=== PATIENT | female | born 1965 | race Two or more races ===

== ENCOUNTER 2018-10-24 23:38 | Emergency (ER) | payer OTHER ==
[2018-10-24 23:43] VITALS: BP 138/91; PULSE 77; TEMP 98.2; BMI 22.6
--- NOTE | 2018-10-25 00:37 | PDOC ---
*Physical Exam - Vital Signs Last Vital Signs Temp Pulse Resp BP Pulse Ox 98.2 F 77 16 138/91 100 10/24/18 23:42 10/24/18 23:42 10/24/18 23:42 10/24/18 23:42 10/24/18 23:42 Medical Decision Making - Medical Decision Making 10/25/18 00:36 Pt seen by the Advanced Practice Provider under my direct supervision Ancillary studies reviewed I agree with plan as outlined by the Advanced Practice Provider REMA Pierre
--- NOTE | 2018-10-25 00:51 | PDOC ---
History of Present Illness - General Chief Complaint: Foreign Body (FB) Stated Complaint: EAR PAIN Time Seen by Provider: 10/25/18 00:06 History Source: Patient Exam Limitations: Clinical Condition - History of Present Illness Initial Comments: 10/25/18 00:56 Patient with no significant past medical history present with complaint of piece of garlic stuck in right ear. Patient reported she has been having right ear ache for the past day and try home remedy reuses garlic for ear pain but the garlic stuck in the right ear. Patient denies dizziness, or any other symptoms Timing/Duration: 1-3 hours Past History - Past Medical History Allergies/Adverse Reactions: Allergies Allergy/AdvReac Type Severity Reaction Status Date / Time No Known Drug Allergies Allergy Verified 10/24/18 23:43 Home Medications: Ambulatory Orders Ascorbate Calcium [Vitamin C] 500 mg PO DAILY 02/25/14 Biotin 800 mcg PO DAILY 02/25/14 Calcium Carbonate/Vitamin D3 [Calcium 600-Vit D3 200 Tablet] 1 tab PO DAILY Oxycodone HCl/Acetaminophen [Percocet 5-325 mg Tablet] 1 tab PO Q6H #20 tablet 02/27/14 Neomycin/Polymyxin B/Hydrocort [Yqlszrer-Mgkmpyaea-Ku Ear Susp] 4 drop OT Q6H 5 Days #1 bottle 10/25/18 COPD: No - Suicide/Smoking/Psychosocial Hx Smoking History: Never smoked Have you smoked in the past 12 months: No Information on smoking cessation initiated: No Hx Alcohol Use: No Drug/Substance Use Hx: No Substance Use Type: None Hx Substance Use Treatment: No Review of Systems - Review of Systems Able to Perform ROS?: Yes Is the patient limited Vietnamese proficient: No Constitutional: No: Fever, Weakness HEENTM: Yes: Symptoms Reported, See HPI, Ear Pain (right ear). No: Eye Pain, Blurred Vision, Tearing, Recent change in vision, Double Vision, Cataracts, Ocular Prothesis, Ear Discharge, Nose Pain, Nose Congestion, Tinnitus, Nose Bleeding, Hearing Loss, Throat Pain, Throat Swelling, Mouth Pain, Dental Problems, Difficulty Swallowing, Mouth Swelling, Other Respiratory: No: Symptoms reported, See HPI, Cough, Orthopnea, Shortness of Breath, SOB with Exertion, SOB at Rest, Stridor, Wheezing, Productive cough, Hemoptysis, Other Cardiac (ROS): No: Symptoms Reported, See HPI, Chest Pain, Edema, Irregular Heart Rate, Lightheadedness, Palpitations, Syncope, Chest Tightness, Other ABD/GI: No: Nausea, Vomiting Neurological: No: Dizziness All Other Systems: Reviewed and Negative *Physical Exam - Vital Signs Last Vital Signs Temp Pulse Resp BP Pulse Ox 98.2 F 77 16 138/91 100 10/24/18 23:42 02 23:42 10/24/18 23:42 10/24/18 23:42 10/24/18 23:42 - Physical Exam Comments: 10/25/18 00:59 GENERAL: Well developed, well nourished. Awake and alert. No acute distress. HEENT: Small piece of garlic embedded in right external ear canal Normocephalic , atraumatic. PERRLA, EOMI. No conjunctival pallor. Sclera are non-icteric. Moist mucous membranes. Oropharynx is clear. NECK: Supple. Full ROM. CARDIOVASCULAR: Regular rate and rhythm. No murmurs, rubs, or gallops. Distal pulses are 2+ and symmetric. PULMONARY: No evidence of respiratory distress. Lungs clear to auscultation bilaterally. No wheezing, rales or rhonchi. ABDOMINAL: Soft. Non-tender. Non-distended. No rebound or guarding. No organomegaly. Normoactive bowel sounds. SKIN: Warm and dry. Normal capillary refill. No rashes. No jaundice. NEUROLOGICAL: Alert, awake, appropriate. Gait is normal without ataxia. PSYCHIATRIC: Cooperative. Good eye contact. Appropriate mood General Appearance: Yes: Nourished, Appropriately Dressed. No: Apparent Distress Moderate Sedation - Procedure Monitoring Vital Signs: Procedure Monitoring Vital Signs Temperature 98.2 F 10/24/18 23:42 Pulse Rate 77 10/24/18 23:42 Respiratory Rate 16 10/24/18 23:42 Blood Pressure 138/91 10/24/18 23:42 O2 Sat by Pulse Oximetry (%) 100 10/24/18 23:42 Medical Decision Making - Medical Decision Making 10/25/18 01:01 Patient with no significant past medical history presented with complaint of piece of garlic stuck in right ear. Small piece of garlic removed with alligator forceps from the right ear. Patient tolerated procedure well. Patient is stable for discharge on neomycin polymycin ear drops with ENT follow-up as needed. *DC/Admit/Observation/Transfer Diagnosis at time of Disposition: Foreign body in left ear Qualifiers: Encounter type: initial encounter Qualified Code(s): T16.2XXA - Foreign body in left ear, initial encounter - Discharge Dispostion Disposition: HOME Condition at time of disposition: Stable Decision to Admit order: No - Prescriptions Prescriptions: Neomycin/Polymyxin B/Hydrocort [Uxoauwtf-Pvstyljsk-Sc Ear Susp] 4 drop OT Q6H 5 Days #1 bottle - Referrals Referrals: Puneet Espinosa MD [Staff Physician] - - Patient Instructions Printed Discharge Instructions: DI for Removal of Foreign Body From Ear Additional Instructions: use prescribed ear drops as prescribed. Follow-up with ENT if ear pain persistent for more than 4 days - Post Discharge Activity
== END 2018-10-25 01:08 | disposition home or self-care (01) ==
LOC: JER 23:38
PROC: 09C37ZZ Extirpation of Matter from Right External Auditory Canal, Via Natural or Artificial Opening (ICD-10-PCS; principal; 2018-10-24)
DX: T16.1XXA Foreign body in right ear, initial encounter (principal)
CPT/HCPCS: 99282-25

== ENCOUNTER 2018-12-05 10:52 | Emergency (ER) | payer OTHER ==
[2018-12-05 10:59] VITALS: BMI 25.3
--- NOTE | 2018-12-05 12:19 | PDOC ---
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 no change to vision but has pain and light sensitivity. came to ED immediately following. no contacts. no other complaints. began irrigating eye immediately following in the ED. as works in hospital. - Physicial Exam PE: 12/05/18 12:18 awake alert lungs with faint expiratory wheeze, no crackles. heart rrr no mrg. eyes with bilat conj injection. tearing. skin warm and dry. no gary. - Medical Decision Making 12/05/18 12:18 53 yo F s/p bleach exposure to eyes, left more painful than right. plan irrigation for 1 hr. will ph test eyes. flourescin after irrigation. pain control with motrin, tetracaine drops. reassess. 12/05/18 14:12 pt with irrigation, has normal ph 7.3. feeling improved with tetracaine. will dc with polytrim and optho followup.
[2018-12-05] MEDS ORDERED: FLUORESCEIN NA 1 EA STRIP ONE (12:52)
[2018-12-05] MEDS ORDERED: TETRACAINE 0.5% OPHTH SOLN 2 ML BOTTLE ONE (12:52)
--- NOTE | 2018-12-05 13:00 | PDOC ---
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 The patient states that white bleach powder exploded everywhere on her clothing and went into her eyes. Her right eye hurts much more than her left eye. When she came into the ER she immediately started irrigating both of her eyes. PCP: Valeria Bethea PSH: Fibroid removal JOSE ALBERTO BSO Allergies: NKA, NKDA Social Hx: Denies smoking, drinking or other substance usage. Past History - Past Medical History Allergies/Adverse Reactions: Allergies Allergy/AdvReac Type Severity Reaction Status Date / Time No Known Drug Allergies Allergy Verified 10/24/18 23:43 Home Medications: Ambulatory Orders NK [No Known Home Medication] 12/05/18 COPD: No - Suicide/Smoking/Psychosocial Hx Smoking History: Never smoked Have you smoked in the past 12 months: No Information on smoking cessation initiated: No Hx Alcohol Use: No Drug/Substance Use Hx: No Substance Use Type: None Hx Substance Use Treatment: No Review of Systems - Review of Systems Able to Perform ROS?: Yes Comments:: CONSTITUTIONAL: Absent: fever, no chills, no fatigue EYES: Present: Visual changes ENT: Absent: ear pain, no sore throat CARDIOVASCULAR: Absent: chest pain, no palpitations RESPIRATORY: Absent: cough, no SOB GI: Absent: abdominal pain, no nausea, no vomiting, no constipation, no diarrhea GENITOURINARY: Absent: dysuria, no frequency, no hematuria MUSKULOSKELETAL: Absent: back pain, no arthralgia, no myalgia SKIN: Absent: rash NEURO: Absent: headache *Physical Exam - Vital Signs Last Vital Signs Temp Pulse Resp BP Pulse Ox 98.0 F 97 H 18 137/94 100 12/05/18 10:55 12/05/18 10:55 12/05/18 10:55 12/05/18 10:55 12/05/18 10:55 - Physical Exam Comments: RIGHT EYE: 20/20 vision. There is a small amount of flourescin uptake. LEFT EYE: 20/25 vision. Significant amount of flourescin uptake in the lower half of the eye. GENERAL: Well-appearing, well-nourished. Moderate distress. HEENT: Normocephalic, atraumatic. PERRL, EOM intact. CARDIOVASCULAR: Normal S1, S2. Regular rate and rhythm. PULMONARY: No evidence of respiratory distress. Lungs clear to auscultation bilaterally. No wheezing, rales or rhonchi. ABDOMEN: Soft, non-distended, non-tender. EXTREMITIES: Normal ROM in all four extremities. No gross deformities. SKIN: Warm, dry. No rash NEUROLOGICAL: No focal neurological deficits. 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 The patient states that white bleach powder exploded everywhere on her clothing and went into her eyes. Her right eye hurts much more than her left eye. When she came into the ER she immediately started irrigating both of her eyes. VS: WNL DDx IBNLT: Corneal injury/abrasion, bleach injury - liquefactive necrosis. Plan: 2 hours of bilaterall eye irrigation, eye ph tests, tetracaine, flourescin exam. RIGHT EYE: 20/20 vision. LEFT EYE: 20/25 vision. pH of right eye: 7.2 pH of left eye: 7.5 - Will have patient irrigate eyes for another 30 minutes. Repeat pH of left eye: 7.3 - Will DC patient with Polytrim eye Abx and Optho fu. Spoke with Optho - Dr. Sin - They can see the patient now. Will DC patient straight to Dr. Sin's office. *DC/Admit/Observation/Transfer Diagnosis at time of Disposition: Eye injury - Discharge Dispostion Disposition: HOME Condition at time of disposition: Stable Decision to Admit order: No - Referrals Referrals: Valeria Concepcion MD [Primary Care Provider] - Jaya Sin MD [Staff Physician] - - Patient Instructions Printed Discharge Instructions: DI for Eye Contusion Additional Instructions: You came into the ER with an eye injury. We washed out your eye for over an hour. Please take the eye antibiotic drops every 6 hours for the next 5 days. GO STRAIGHT TO DR. SIN'S OFFICE FROM THE ER. Come back to the ER immediately if your pain worsens, you experience worsening of your vision, or have any other new or worsening concerns. Thank you for coming to the [facility] ER. We hope you feel better soon! Print Language: WOLOF - Post Discharge Activity
[2018-12-05 14:35] VITALS: BP 136/79; PULSE 77; TEMP 98.3
[2018-12-05] MEDS ORDERED: POLYMYXIN B SULFATE/TMP 10 ML OPHTHALMIC SOLUTION OS SCH (18:00)
== END 2018-12-05 14:50 | disposition home or self-care (01) ==
LOC: JER 10:52
PROC: 4A07X0Z Measurement of Visual Acuity, External Approach (ICD-10-PCS; principal; 2018-12-05)
PROC: 3E1CX8Z Irrigation of Eye using Irrigating Substance (ICD-10-PCS; 2018-12-05)
PROC: 3E1CX8Z Irrigation of Eye using Irrigating Substance (ICD-10-PCS; 2018-12-05)
DX: T54.91XA Toxic effect of unspecified corrosive substance, accidental (unintentional), initial encounter (principal); T26.82XA Corrosions of other specified parts of left eye and adnexa, initial encounter; T26.81XA Corrosions of other specified parts of right eye and adnexa, initial encounter; Y93.E2 Activity, laundry; Y92.238 Other place in hospital as the place of occurrence of the external cause; Y99.0 Civilian activity done for income or pay
CPT/HCPCS: 99282-25

== ENCOUNTER 2021-11-07 04:33 | Day surgery (SDC) | payer OTHER ==
[2021-11-04 12:56] VITALS: BMI 25.6
[2021-11-07] MEDS ORDERED: MIDAZOLAM HCL 2 MG/2 ML SINGLE DOSE VIAL ONE (16:57)
[2021-11-07 18:00] VITALS: TEMP 97.7
[2021-11-07 18:52] VITALS: BP 122/70; PULSE 79
== END 2021-11-07 18:55 | disposition home or self-care (01) ==
LOC: JASU-SURG 04:33
PROVIDERS: ATTEND Urology
PROC: 0TF4XZZ Fragmentation in Left Kidney Pelvis, External Approach (ICD-10-PCS; principal; 2021-11-07 15:30)
DX: N20.0 Calculus of kidney (principal)

== ENCOUNTER 2022-01-02 04:24 | Day surgery (SDC) | payer OTHER ==
[2021-12-28 17:54] VITALS: BMI 25.6
[2022-01-02] MEDS ORDERED: MIDAZOLAM HCL 2 MG/2 ML SINGLE DOSE VIAL ONE (15:27)
[2022-01-02] MEDS ORDERED: PROPOFOL 20 ML ONE (15:27)
[2022-01-02 17:46] VITALS: BP 138/76; PULSE 75; TEMP 97.8
== END 2022-01-02 17:25 | disposition home or self-care (01) ==
LOC: JASU-SURG 04:24
PROVIDERS: ATTEND Urology
PROC: 0TF3XZZ Fragmentation in Right Kidney Pelvis, External Approach (ICD-10-PCS; principal; 2022-01-02 13:30)
DX: N20.0 Calculus of kidney (principal)